=== PATIENT | male | born 1980 | race American Indian/Alaskan Native ===

== ENCOUNTER 2017-10-10 09:34 | Emergency (ER) | payer SELFPAY ==
--- NOTE | 2017-10-10 12:53 | Emergency Department Report ---
- General Chief Complaint: Sore Throat Stated Complaint: SORE THROAT/COUGHING Time Seen by Provider: 10/10/17 12:40 Source: patient Mode of arrival: Ambulatory Limitations: No Limitations - History of Present Illness Initial Comments: 36-year-old male smoker presents with 3 days of body aches persistent cough and sore throat. Patient is awake alert and oriented 3 denies any nausea or vomiting. Patient is fully lucid. Nontoxic appearing. States he has persistent cough which has gotten slightly worse over the last 3 days. States he has had some sick contacts with similar symptoms. Patient is fully lucid visible dyspnea no audible wheezing or stridor. Patient is a smoker. MD Complaint: cough, sore throat, rhinorrhea Onset/Timin -: days(s) Severity: moderate Improves With: OTC cold medicine Context: sick contacts Associated Symptoms: sore throat, cough Treatments Prior to Arrival: none - Related Data Previous Rx's Medication Instructions Recorded Last Taken Type Ibuprofen [Motrin] 800 mg PO Q8HR PRN #30 tablet 10/19/15 Unknown Rx Benzonatate [Tessalon Perles] 100 mg PO Q8HR PRN #30 capsule 10/10/17 Unknown Rx Ibuprofen [Motrin] 800 mg PO Q8HR PRN #30 tablet 10/10/17 Unknown Rx Oseltamivir [Tamiflu] 75 mg PO BID #10 cap 10/10/17 Unknown Rx Phenylephrine/Dm/Acetaminop/GG 10 ml PO Q6H PRN #1 liquid 10/10/17 Unknown Rx [Mucinex Hunf-Cxs-Duepzhotso Lq] Allergies Allergy/AdvReac Type Severity Reaction Status Date / Time No Known Allergies Allergy Verified 10/19/15 01:54 ED Review of Systems ROS: Stated complaint: SORE THROAT/COUGHING Other details as noted in HPI Constitutional: denies: chills, fever Eyes: denies: eye pain, eye discharge, vision change ENT: throat pain. denies: ear pain Respiratory: cough. denies: shortness of breath, wheezing Cardiovascular: denies: chest pain, palpitations Endocrine: no symptoms reported Gastrointestinal: denies: abdominal pain, nausea, diarrhea Genitourinary: denies: urgency, dysuria Musculoskeletal: denies: back pain, joint swelling, arthralgia Skin: denies: rash, lesions Neurological: denies: headache, weakness, paresthesias Psychiatric: denies: anxiety, depression Hematological/Lymphatic: denies: easy bleeding, easy bruising ED Past Medical Hx - Past Medical History Previous Medical History?: Yes Hx Psychiatric Treatment: Yes (anxiety) - Surgical History Past Surgical History?: No - Social History Smoking Status: Current Every Day Smoker Substance Use Type: Alcohol, Non Opiate Pain - Medications Home Medications: Home Medications Medication Instructions Recorded Confirmed Last Taken Type Ibuprofen [Motrin] 800 mg PO Q8HR PRN #30 tablet 10/19/15 Unknown Rx Benzonatate [Tessalon Perles] 100 mg PO Q8HR PRN #30 capsule 10/10/17 Unknown Rx Ibuprofen [Motrin] 800 mg PO Q8HR PRN #30 tablet 10/10/17 Unknown Rx Oseltamivir [Tamiflu] 75 mg PO BID #10 cap 10/10/17 Unknown Rx Phenylephrine/Dm/Acetaminop/GG 10 ml PO Q6H PRN #1 liquid 10/10/17 Unknown Rx [Mucinex Uesj-Pjc-Xgeyqvircs Lq] ED Physical Exam - General Limitations: No Limitations General appearance: alert, in no apparent distress - Head Head exam: Present: atraumatic, normocephalic - Eye Eye exam: Present: normal appearance, PERRL, EOMI - ENT ENT exam: Present: mucous membranes moist - Neck Neck exam: Present: normal inspection - Respiratory Respiratory exam: Present: normal lung sounds bilaterally. Absent: respiratory distress - Cardiovascular Cardiovascular Exam: Present: regular rate, normal rhythm. Absent: systolic murmur, diastolic murmur, rubs, gallop - GI/Abdominal GI/Abdominal exam: Present: soft, normal bowel sounds - Rectal Rectal exam: Present: deferred - Extremities Exam Extremities exam: Present: normal inspection - Back Exam Back exam: Present: normal inspection - Neurological Exam Neurological exam: Present: alert, oriented X3 - Psychiatric Psychiatric exam: Present: normal affect, normal mood - Skin Skin exam: Present: warm, dry, intact, normal color. Absent: rash ED Course Vital Signs 10/10/17 10/10/17 10/10/17 10:23 13:17 13:20 Temperature 98.7 F Pulse Rate 89 Pulse Rate [ 79 Anterior Bilateral Throughout] Respiratory 16 20 Rate Respiratory 18 Rate [Anterior Bilateral Throughout] Blood Pressure 110/80 O2 Sat by Pulse 100 Oximetry 10/10/17 13:29 Temperature Pulse Rate Pulse Rate [ 90 Anterior Bilateral Throughout] Respiratory Rate Respiratory 18 Rate [Anterior Bilateral Throughout] Blood Pressure O2 Sat by Pulse Oximetry ED Medical Decision Making - Medical Decision Making A/P: Influenza B 1-I discussed the risks and benefits and side effects of Tamiflu with patient. Patient is within 72 hour window of symptom onset therefore as per CDC guidelines it is recommended to offer the patient Tamiflu. Patient states that he is interested in taking the medicine. 2-Ventolin inhaler, Motrin when necessary, Mucinex, Tessalon Perles 3-follow-up with primary care doctor 4- I gave patient strict precautions to return for any inability to tolerate by mouth high fevers and chills persistent nausea and vomiting. Patient stated he understood my instructions clearly. Critical care attestation.: If time is entered above; I have spent that time in minutes in the direct care of this critically ill patient, excluding procedure time. ED Disposition Clinical Impression: Influenza B Disposition: DC- TO HOME OR SELFCARE Is pt being admited?: No Does the pt Need Aspirin: No Condition: Stable Instructions: Influenza (ED), Viral Syndrome (ED) Prescriptions: Benzonatate [Tessalon Perles] 100 mg PO Q8HR PRN #30 capsule PRN Reason: Cough Ibuprofen [Motrin] 800 mg PO Q8HR PRN #30 tablet PRN Reason: Fever Oseltamivir [Tamiflu] 75 mg PO BID #10 cap Phenylephrine/Dm/Acetaminop/GG [Mucinex Xali-Prv-Hixbaajjkq Lq] 10 ml PO Q6H PRN #1 liquid PRN Reason: Cough Referrals: [facility] [Outside] - 3-5 Days [facility] [Outside] - 3-5 Days Forms: Work/School Release Form(ED) Time of Disposition: 13:48
[2017-10-10] MEDS ORDERED: TYLENOL PO ONE (13:10)
[2017-10-10] MEDS ORDERED: DUONEB *Not for PRN Use IH ONE (13:10)
[2017-10-10] MEDS ORDERED: GUAIFENESIN DM SYRUP PO ONE (13:10)
--- NOTE | 2017-10-10 13:16 | XRay Report ---
ROUTINE CHEST, TWO VIEWS: HISTORY: Cough. The trachea, heart, mediastinal contour, lung [place] and bony thorax are unremarkable. IMPRESSION: Unremarkable chest x-ray.
[2017-10-10 14:04] VITALS: BP 106/75
== END 2017-10-10 14:04 | disposition home or self-care (01) ==
LOC: ED 09:34
DX: J11.1 Influenza due to unidentified influenza virus with other respiratory manifestations (principal); F17.200 Nicotine dependence, unspecified, uncomplicated
CPT/HCPCS: 71046; 87116; 87400; 87430; 94640; 99283

== ENCOUNTER 2017-11-04 10:36 | Emergency (ER) | payer SELFPAY ==
--- NOTE | 2017-11-04 13:00 | Emergency Department Report ---
ED Chest Pain HPI - General Chief Complaint: Chest Pain Stated Complaint: CHEST PAIN Time Seen by Provider: 11/04/17 12:43 Source: patient Mode of arrival: Ambulatory Limitations: No Limitations - History of Present Illness Initial Comments: History this 36-year-old male who is presenting with chest discomfort. Patient states he has been working out lately doing sit ups and pushups when he woke up this morning with some sharp center chest discomfort and shortness of breath which is now resolved. Patient's denies any cough cold congestion no nausea vomiting cardiac history diabetes. Patient does smoke he denies any cough. Patient also is complaining of right ankle pain patient states he tripped 3 days ago and believes he sprained his right ankle there is some swelling in his walking with a limp. Patient states pain in his right ankle is 6 out of 10 with no radiation walking makes it worse resting makes it better. Patient also is complaining of penile discharge she has had sexual contact without condoms as were about STDs - Related Data Previous Rx's Medication Instructions Recorded Last Taken Type Ibuprofen [Motrin] 800 mg PO Q8HR PRN #30 tablet 10/19/15 Unknown Rx Benzonatate [Tessalon Perles] 100 mg PO Q8HR PRN #30 capsule 10/10/17 Unknown Rx Ibuprofen [Motrin] 800 mg PO Q8HR PRN #30 tablet 10/10/17 Unknown Rx Oseltamivir [Tamiflu] 75 mg PO BID #10 cap 10/10/17 Unknown Rx Phenylephrine/Dm/Acetaminop/GG 10 ml PO Q6H PRN #1 liquid 10/10/17 Unknown Rx [Mucinex Rbyl-Inc-Ehygbhmuli Lq] Allergies Allergy/AdvReac Type Severity Reaction Status Date / Time No Known Allergies Allergy Verified 10/19/15 01:54 Heart Score - HEART Score History: Slightly suspicious EKG: Normal Age: < 45 Risk factors: No known risk factors Troponin: < normal limit HEART Score: 0 ED Review of Systems ROS: Stated complaint: CHEST PAIN Other details as noted in HPI Comment: All other systems reviewed and negative ED Past Medical Hx - Past Medical History Previous Medical History?: No Hx Psychiatric Treatment: Yes (anxiety) - Surgical History Past Surgical History?: No - Social History Smoking Status: Current Every Day Smoker Substance Use Type: None - Medications Home Medications: Home Medications Medication Instructions Recorded Confirmed Last Taken Type Ibuprofen [Motrin] 800 mg PO Q8HR PRN #30 tablet 10/19/15 Unknown Rx Benzonatate [Tessalon Perles] 100 mg PO Q8HR PRN #30 capsule 10/10/17 Unknown Rx Ibuprofen [Motrin] 800 mg PO Q8HR PRN #30 tablet 10/10/17 Unknown Rx Oseltamivir [Tamiflu] 75 mg PO BID #10 cap 10/10/17 Unknown Rx Phenylephrine/Dm/Acetaminop/GG 10 ml PO Q6H PRN #1 liquid 10/10/17 Unknown Rx [Mucinex Mibn-Umv-Lxljrhzupc Lq] ED Physical Exam - General Limitations: No Limitations General appearance: alert, in no apparent distress - Head Head exam: Present: atraumatic, normocephalic - Eye Eye exam: Present: normal appearance - ENT ENT exam: Present: mucous membranes moist - Neck Neck exam: Present: normal inspection - Respiratory Respiratory exam: Present: normal lung sounds bilaterally. Absent: respiratory distress - Cardiovascular Cardiovascular Exam: Present: regular rate, normal rhythm. Absent: systolic murmur, diastolic murmur, rubs, gallop - GI/Abdominal GI/Abdominal exam: Present: soft, normal bowel sounds - Rectal Rectal exam: Present: deferred - Extremities Exam Extremities exam: Present: normal inspection - Back Exam Back exam: Present: normal inspection - Neurological Exam Neurological exam: Present: alert, oriented X3 - Psychiatric Psychiatric exam: Present: normal affect, normal mood - Skin Skin exam: Present: warm, dry, intact, normal color. Absent: rash ED Course Vital Signs 11/04/17 11:39 Temperature 98.3 F Pulse Rate 79 O2 Sat by Pulse 79 L Oximetry ED Medical Decision Making - EKG Data -: EKG Interpreted by Me EKG shows normal: sinus rhythm, axis, QRS complexes, ST-T waves - Radiology Data Radiology results: report reviewed No acute process Critical care attestation.: If time is entered above; I have spent that time in minutes in the direct care of this critically ill patient, excluding procedure time. ED Disposition Clinical Impression: Atypical chest pain, Urethritis Ankle sprain Qualifiers: Encounter type: initial encounter Involved ligament of ankle: other ligament Laterality: right Qualified Code(s): S93.491A - Sprain of other ligament of right ankle, initial encounter Disposition: TO HOME OR SELFCARE Is pt being admited?: No Does the pt Need Aspirin: No Condition: Stable Instructions: Nonspecific Urethritis in Men (ED), RICE Therapy (ED), Ankle Sprain (ED) Referrals: PRIMARY CARE, [Primary Care Provider] - 3-5 Days Forms: STI Treatment and Prevention
[2017-11-04] MEDS ORDERED: ZITHROMAX PO ONE (13:01)
[2017-11-04] MEDS ORDERED: XYLOCAINE 1% MPF 5 mL INFILTRATI ONE (13:01)
[2017-11-04] MEDS ORDERED: ROCEPHIN IM ONE (13:01)
--- NOTE | 2017-11-04 14:21 | XRay Report ---
RIGHT ANKLE RADIOGRAPHS INDICATION: Ankle swelling and injury. COMPARISON: None similar. FINDINGS: AP and lateral right ankle radiographs demonstrate intact mortise, malleoli and talar dome contour. A 2-3 mm nonspecific ossific density projecting in the medial clear space on the frontal view appears corticated. Mild soft tissue swelling noted laterally and also possibly anteriorly. CONCLUSION: Right ankle soft tissue swelling/injury possible without acute bony abnormality, as described. Please correlate. Thank you for the opportunity to participate in this patient's care.
== END 2017-11-04 13:50 | disposition home or self-care (01) ==
LOC: ED 10:36
DX: R07.89 Other chest pain (principal); N34.2 Other urethritis; S93.401A Sprain of unspecified ligament of right ankle, initial encounter; F17.200 Nicotine dependence, unspecified, uncomplicated; W01.0XXA Fall on same level from slipping, tripping and stumbling without subsequent striking against object, initial encounter; Y93.89 Activity, other specified; Y92.89 Other specified places as the place of occurrence of the external cause; Y99.8 Other external cause status
CPT/HCPCS: 73600; 93005; 93010; 96372; 99283; J0696